=== PATIENT | male | born 1975 | race African-American/Black ===

== ENCOUNTER 2022-12-04 22:45 | Emergency (ER) | payer OTHER, SELFPAY ==
[2022-12-04] MEDS ORDERED: Boostrix 0.5 ML (Tdap) VIAL (>/=7 yrs of age) ONE (23:39)
[2022-12-05] MEDS ORDERED: Ketorolac Tromethamine 30 MG/ML VIAL ONE (00:30)
== END 2022-12-05 00:55 | disposition home or self-care (01) ==
LOC: CSHERS 22:45
DX: S80.211A Abrasion, right knee, initial encounter (principal); Z23 Encounter for immunization; W19.XXXA Unspecified fall, initial encounter
CPT/HCPCS: 90471; 90715; J1885